=== PATIENT | female | born 1985 ===

== ENCOUNTER 2021-09-06 21:07 | Emergency (ER) | payer BC ==
[~2021-09-06] VITALS: Ht 160 cm; Wt 104.5 kg
[2021-09-06] MEDS ORDERED: ipratropium/albuterol 3ml nebule NEB ONE ×2 (21:15→22:05)
[2021-09-06] MEDS ORDERED: predniSONE 20 mg tablet PO ONE (21:15)
[2021-09-06 21:57] LABS: BASOPHILS % (AUTO) 0.4 % (0-1); EOSINOPHILS # (AUTO) 0.2 X10'3 (0-0.9); HEMATOCRIT 42.7 % (35.0-45.0); HEMOGLOBIN 14.6 g/dl (12.0-16.0); LYMPHOCYTES % (AUTO) 24.5 % (21-51); MEAN CORPUSCULAR HEMOGLOBIN 30.8 PG (27.0-31.0); MEAN CORPUSCULAR HGB CONC 34.3 g/dL (33.0-36.5); MEAN CORPUSCULAR VOLUME 89.8 FL (78-98); MEAN PLATELET VOLUME 7.6 FL (7.4-10.4); MONOCYTES # (AUTO) 0.7 X10'3 (0-0.9); MONOCYTES % (AUTO) 5.5 % (2-12); NEUTROPHILS # (AUTO) 8.3 X10'3 (1.8-7.7); NEUTROPHILS % (AUTO) 67.6 % (42-75); PLATELET COUNT 273 X10'3 (140-440); RED BLOOD COUNT 4.75 X10'6 (4.20-5.60); WHITE BLOOD COUNT 12.3 X10'3 (4.5-11.0)
[2021-09-06 22:04] LABS: ALANINE AMINOTRANSFERASE 34 U/L (12-78); ALBUMIN/GLOBULIN RATIO 1.1 (1.1-1.5); ALKALINE PHOSPHATASE 74 IU/L (46-116); ANION GAP 10 (8-16); ASPARTATE AMINO TRANSFERASE 19 U/L (10-37); BILIRUBIN,TOTAL 0.2 MG/DL (0.1-1.0); BLOOD UREA NITROGEN 17 MG/DL (7-18); BUN/CREATININE RATIO 18.9 (6.6-38.0); CALCIUM 9.2 MG/DL (8.5-10.1); CHLORIDE 104 MMOL/L (99-107); GLUCOSE 133 MG/DL (70-104); POTASSIUM 3.8 MMOL/L (3.5-5.1); SODIUM 143 MMOL/L (135-145); TOTAL CARBON DIOXIDE 28.6 MMOL/L (24-32); TOTAL PROTEIN 7.5 G/DL (6.4-8.2); eGFR 71 ML/MIN
[2021-09-06] MEDS ORDERED: cyclobenzaprine 10mg tablet PO ONE (22:15)
[2021-09-06] MEDS ORDERED: PRED20TA PO (22:40)
[2021-09-06] MEDS ORDERED: DOXY100C76 PO (22:40)
[2021-09-06 22:52] VITALS: BP 130/84
== END 2021-09-06 22:55 | disposition home or self-care (01) ==
LOC: EEVIPCON 21:08 → ER 21:08
DX: J44.1 Chronic obstructive pulmonary disease with (acute) exacerbation (principal); Z88.2 Allergy status to sulfonamides; Z88.1 Allergy status to other antibiotic agents; Z79.899 Other long term (current) drug therapy
CPT/HCPCS: 36415; 71045; 80053; 84484; 85025; 94640; 99285; J7512; 94760